=== PATIENT | female | born 1965 | race Caucasian/White ===

== ENCOUNTER 2018-04-05 06:09 | Day surgery (SDC) | payer BC ==
[~2018-04-05 06:09] MED LIST: LACTATED RINGER'S 1,000 ML IV
[2018-04-05 06:58] LABS: ADD MAN DIFF? NO
[2018-04-05 07:02] LABS: BASOPHIL # 0.1 10^3/ul (0.0-0.1); BASOPHILS % 1.1 % (0.0-2.0); EOSINOPHILS # 0.2 10^3/ul (0.0-0.5); HEMATOCRIT 38.2 % (37.0-47.0); HEMOGLOBIN 12.9 g/dl (12.0-16.0); LYMPHOCYTES # 1.7 10^3/ul (0.8-2.9); LYMPHOCYTES % 31.5 % (15.0-51.0); MEAN CORPUSCULAR HEMOGLOBIN 31.6 pg (29.0-33.0); MEAN CORPUSCULAR HGB CONC 33.8 g/dl (32.0-37.0); MEAN CORPUSCULAR VOLUME 93.6 fl (82.0-101.0); MONOCYTE # 0.6 10^3/ul (0.3-0.9); MONOCYTES % 11.7 % (0.0-11.0); NEUTROPHIL # 2.8 10^3/ul (1.6-7.5); NEUTROPHILS % 52.3 % (39.0-77.0); PLATELET COUNT 164 10^3/UL (140-415); RED BLOOD COUNT 4.08 10^6/ul (4.20-5.40)
[2018-04-05 07:02] LABS: WHITE BLOOD COUNT 5.4 10^3/ul (4.8-10.8)
[2018-04-05 07:23] LABS: INR 0.93; PARTIAL THROMBOPLASTIN TIME 25.6 Sec (23.0-35.0); PROTIME 12.5 Sec (11.9-14.9)
[2018-04-05] MEDS ORDERED: METOCLOPRAMIDE 10 MG INJ IV (07:30)
[2018-04-05] MEDS ORDERED: DIPHENHYDRAMINE 50 MG INJ IV (07:30)
[2018-04-05] MEDS ORDERED: FENTAnyl 50 MCG/ML VIAL IV ×2 (07:30)
[2018-04-05] MEDS ORDERED: HYDROmorphONE 1 MG/5 ML IV SYRINGE IV ×2 (07:30)
[2018-04-05] MEDS ORDERED: ONDANSETRON 4 MG INJ IV (07:30)
[2018-04-05] MEDS ORDERED: MEPERIDINE 25 MG INJ IV (07:30)
[2018-04-05] MEDS ORDERED: FENTAnyl 50 MCG/ML VIAL (08:01)
[2018-04-05] MEDS ORDERED: SUCCINYLCHOLINE CHLORIDE 100 MG/5 ML SYG IV (08:13)
[2018-04-05] MEDS ORDERED: ROCURONIUM 50 MG INJ (08:13)
[2018-04-05] MEDS ORDERED: SUGAMMADEX SODIUM 200 MG/2 ML VIAL IV (08:13)
[2018-04-05] MEDS ORDERED: PROPOFOL 20 ML (08:13)
[2018-04-05] MEDS ORDERED: LIDOCAINE 100 MG SYRINGE (08:13)
[2018-04-05] MEDS: FENTAnyl 50 MCG/ML VIAL IV ×2 (09:02→09:10)
[2018-04-05] MEDS: HYDROmorphONE 1 MG/5 ML IV SYRINGE IV (09:24)
== END 2018-04-05 10:20 | disposition home or self-care (01) ==
LOC: SDS 06:09
DX: N95.0 Postmenopausal bleeding (principal); N84.0 Polyp of corpus uteri; F41.8 Other specified anxiety disorders
CPT/HCPCS: 58558; 85025; 85610; 85730; 88305